=== PATIENT | female | born 1955 | race Caucasian/White ===

== ENCOUNTER 2019-06-17 06:41 | Day surgery (SDC) | payer OTHER ==
[~2019-06-17 06:41] MED LIST: BISOPROLOL-HCT1 EACH PO; COZAAR100 MG PO; FOLIVANE-PLUS1 EACH PO; LEVOTHYROXINE25 MCG PO; LIPITOR20 MG PO; Neurontin PO; ORPH100T PO; OXYC1TAB9 PO; TRADJENTA5 MG PO; XARELTO10 MG PO
[2019-06-17] MEDS ORDERED: MACROBID 100 M100 MG PO (10:19)
[2019-06-17] MEDS ORDERED: ULTRACET PO (10:20)
== END 2019-06-17 13:15 | disposition home or self-care (01) ==
LOC: CIR.AMB 06:41
DX: N81.11 Cystocele, midline (principal); N81.5 Vaginal enterocele